=== PATIENT | male | born 1980 | race Caucasian/White ===

== ENCOUNTER 2018-02-08 18:57 | Emergency (ER) | payer SELFPAY, OTHER | END 2018-02-08 21:09 | disposition home or self-care (01) | LOC: ER 18:57 | DX: S00.03XA Contusion of scalp, initial encounter (principal); M25.512 Pain in left shoulder; Z98.52 Vasectomy status; Z90.49 Acquired absence of other specified parts of digestive tract; V43.52XA Car driver injured in collision with other type car in traffic accident, initial encounter; Y92.410 Unspecified street and highway as the place of occurrence of the external cause; Y93.I9 Activity, other involving external motion; Y99.8 Other external cause status | CPT/HCPCS: 72100; 73030; 99284 ==